=== PATIENT | male | born 1990 | race Native Hawaiian/Other Pacific Islander ===

== ENCOUNTER 2018-05-23 06:57 | Emergency (ER) | payer OTHER ==
[~2018-05-23] VITALS: Ht 182.9 cm; Wt 108.9 kg
[2018-05-23] MEDS ORDERED: AUGMENTIN 875-1 EACH PO (07:36)
[2018-05-23 08:23] VITALS: BP 138/106
== END 2018-05-23 08:24 | disposition home or self-care (01) ==
LOC: ER 06:57
DX: H66.93 Otitis media, unspecified, bilateral (principal); F17.210 Nicotine dependence, cigarettes, uncomplicated